=== PATIENT | male | born 1950 | race Caucasian/White ===

== ENCOUNTER → 2017-06-23 | Outpatient (CLI) | payer OTHER ==
[~2017-06-23] MED LIST: ADVIL PM CAPLE1 EACH PO; ALEVE220 MG PO; AMARYL4 MG PO; CALCIUM OYSTER500 MG; CEPHALEXIN 500500 M2 PO; CLOBETASOL PROP60 G3; CLOBEX; FLOMAX0.4 MG PO; FOSAMAX 70 MG T70 M1 PO; FOSAMAX 70 MG T70 MG PO; GLUCOPHAGE1000 MG PO; GLUCOPHAGE500 MG PO; LEVOTHYROXIN0.112 M1 PO; LORTAB 5 MG/5001 TA1 PO; PRAVASTATIN SOD20 MG PO; RISPERDAL 1 MG T1 MG PO; THERA-M CAPLET1 EACH PO; TINACTIN150 GM; TIROSINT75 MCG PO; VITAMIN D 5050000 I1 PO; VITAMIN D1000 UNI1 PO; WELLBUTRIN SR100 MG PO; WELLBUTRIN XL150 M2 PO; ZOCOR40 MG PO
== END ==
LOC: RAD 15:35
DX: R06.00 Dyspnea, unspecified (principal); E11.9 Type 2 diabetes mellitus without complications; G47.33 Obstructive sleep apnea (adult) (pediatric); E03.9 Hypothyroidism, unspecified; E78.5 Hyperlipidemia, unspecified

== ENCOUNTER → 2019-06-28 | Outpatient (CLI) | payer OTHER | LOC: RAD 13:38 | DX: J44.9 Chronic obstructive pulmonary disease, unspecified (principal) ==

== ENCOUNTER → 2019-10-23 | Outpatient (CLI) | payer OTHER | LOC: RAD 09:40 | DX: J44.9 Chronic obstructive pulmonary disease, unspecified (principal) ==